=== PATIENT | female | born 1970 | race Caucasian/White ===

== ENCOUNTER → 2016-10-25 | Outpatient (CLI) | payer BC | LOC: RAD 11:06 | DX: J18.9 Pneumonia, unspecified organism (principal) ==

== ENCOUNTER → 2017-06-06 | Outpatient (CLI) | payer BC | LOC: RAD 13:53 | DX: Z12.31 Encounter for screening mammogram for malignant neoplasm of breast (principal) ==

== ENCOUNTER → 2017-06-08 | Outpatient (CLI) | payer BC | LOC: ULTRA 13:20 | DX: N63.10 Unspecified lump in the right breast, unspecified quadrant (principal) ==

== ENCOUNTER → 2018-06-19 | Outpatient (CLI) | payer BC | LOC: RAD 13:53 | DX: M79.672 Pain in left foot (principal) ==

== ENCOUNTER → 2018-09-11 | Outpatient (CLI) | payer BC | LOC: RAD 02:05 | DX: N60.01 Solitary cyst of right breast (principal); N60.02 Solitary cyst of left breast ==

== ENCOUNTER → 2018-12-17 | Outpatient (CLI) | payer BC | LOC: RAD 15:13 | DX: M25.811 Other specified joint disorders, right shoulder (principal) ==

== ENCOUNTER → 2019-01-24 | Outpatient (CLI) | payer BC | LOC: MRI 12:16 | DX: M19.011 Primary osteoarthritis, right shoulder (principal); M25.811 Other specified joint disorders, right shoulder; M75.101 Unspecified rotator cuff tear or rupture of right shoulder, not specified as traumatic ==

== ENCOUNTER → 2019-05-21 | Outpatient (CLI) | payer BC | LOC: RAD 11:59 | DX: R05 Cough (principal); R09.89 Other specified symptoms and signs involving the circulatory and respiratory systems ==

== ENCOUNTER → 2019-11-06 | Outpatient (CLI) | payer BC | LOC: BC 14:41 | DX: Z12.31 Encounter for screening mammogram for malignant neoplasm of breast (principal) ==